=== PATIENT | male | born 1990 | race Caucasian/White ===

== ENCOUNTER → 2017-12-07 | Outpatient (CLI) | payer BC ==
[~2017-12-07] MED LIST: AMIT25 PO; Bactrim Ds Tab1 EACH PO; CARB100ER PO; CARBAMAZEPINE400 M1 PO; CYCL10 PO; GABA600 PO; PRED20 PO
[2017-12-10 00:12] LABS: CHLAMYDIA TRACHOMATIS, NAA Negative (Negative); NEISSERIA GONORRHOEAE, NAA Positive (Negative)
== END | disposition home or self-care (01) ==
LOC: LAB 12:00 → LAB SHORT 12:00
PROVIDERS: Emergency Medicine
DX: R36.0 Urethral discharge without blood (principal)
CPT/HCPCS: 87491; 87591

== ENCOUNTER → 2018-01-29 | Outpatient (CLI) | payer BC | LOC: LAB SHORT 12:24 → LAB 12:24 | PROVIDERS: Nurse Practitioner | DX: N50.9 Disorder of male genital organs, unspecified (principal) | CPT/HCPCS: 86695; 86696 ==

== ENCOUNTER → 2018-05-27 | Outpatient (CLI) | payer BC, SELFPAY ==
[2018-05-27 14:30] LABS: Creatinine Urine 60.6 mg/dL (27.00-270.00); Protein, Urine Quantitative 63.7 mg/dL (0.0-11.9)
== END | disposition home or self-care (01) ==
LOC: LAB 12:00 → LAB SHORT 12:00
PROVIDERS: Internal Medicine Nephrology
DX: N18.1 Chronic kidney disease, stage 1 (principal); D63.1 Anemia in chronic kidney disease; R31.9 Hematuria, unspecified
CPT/HCPCS: 81050; 82043; 82570; 84156

== ENCOUNTER 2019-03-25 16:57 | Emergency (ER) | payer BC, SELFPAY ==
[~2019-03-25] VITALS: Ht 170.2 cm; Wt 63.5 kg
[2019-03-25] MEDS ORDERED: LISINOPRIL PO (17:09)
[2019-03-25 18:38] LABS: BASOPHILS ABSOLUTE AUTO 0.04 K/mm3 (0.00-0.23); BASOPHILS PERCENT AUTO 1 % (0-2); EOSINOPHILS ABSOLUTE AUTO 0.16 K/mm3 (0.00-0.68); EOSINOPHILS PERCENT AUTO 2 % (0-6); Hematocrit 44.7 % (37.0-53.0); IMMATURE GRAN ABSOLUTE AUTO 0.02 K/mm3 (0.00-0.10); IMMATURE GRAN PERCENT AUTO 0 % (0-1); LYMPHOCYTES ABSOLUTE AUTO 2.26 K/mm3 (0.84-5.20); LYMPHOCYTES PERCENT AUTO 28 % (21-46); MONOCYTES ABSOLUTE AUTO 0.44 K/mm3 (0.16-1.47); MONOCYTES PERCENT AUTO 5 % (4-13); Mean Corpuscular HGB 30.4 pg (26.0-34.0); Mean Corpuscular HGB Conc 33.6 g/dL (31.5-36.5); Mean Corpuscular Volume 91 fL (80-100); NEUTROPHILS ABSOLUTE AUTO 5.16 K/mm3 (1.96-9.15); NEUTROPHILS PERCENT AUTO 64 % (41-73); Platelet Count 231 K/mm3 (150-400); RDW Coefficient Variation 12.6 % (11.7-14.2); RDW Standard Deviation 41.1 fL (35.1-46.3); Red Blood Cell Count 4.93 M/mm3 (4.30-5.90); White Blood Cell Count 8.08 K/mm3 (4.00-11.30)
[2019-03-25 18:41] LABS: Alanine Aminotransfer (ALT/SGP 41 U/L (12-78); Albumin, Blood 3.8 g/dL (3.4-5.0); Albumin/Globulin Ratio 1.1 (0.8-1.8); Alk Phos 99 U/L (50-136); Anion Gap 4 mmol/L (6-16); Aspartate Aminotrans (AST/SGOT 20 U/L (12-37); Bilirubin, Total 0.2 mg/dL (0.1-1.0); Blood Urea Nitrogen 17 mg/dL (8-24); Bun/Creatinine Ratio 15.6 (12.0-20.0); CO2, Blood 31 mmol/L (21-32); Calcium, Blood 8.7 mg/dL (8.5-10.1); Chloride, Blood 105 mmol/L (98-108); Creatinine, Blood 1.09 mg/dL (0.60-1.20); Globulin, Blood 3.6 g/dL (2.2-4.0); Glomerular Filtration Rate >60 (60-); Glucose, Blood 91 mg/dL (70-99); Potassium, Blood 3.8 mmol/L (3.5-5.5); Sodium, Blood 140 mmol/L (136-145); Total Protein, Blood 7.4 g/dL (6.4-8.2)
== END 2019-03-25 19:10 | disposition home or self-care (01) ==
LOC: ER 16:57
PROVIDERS: Emergency Medicine
DX: I10 Essential (primary) hypertension (principal); N02.8 Recurrent and persistent hematuria with other morphologic changes; F17.290 Nicotine dependence, other tobacco product, uncomplicated; Z79.899 Other long term (current) drug therapy
CPT/HCPCS: 36415; 80053; 85025; 93005; 93010; 99283-25

== ENCOUNTER 2021-02-26 12:52 | Emergency (ER) | payer OTHER ==
[~2021-02-26] VITALS: Ht 170.2 cm; Wt 63.5 kg
[~2021-02-26 12:52] MED LIST changes: +LISINOPRIL PO
[2021-02-26] MEDS ORDERED: LOSA50 PO (13:28)
== END 2021-02-26 13:35 | disposition home or self-care (01) ==
LOC: ER 12:52
DX: K64.8 Other hemorrhoids (principal); K64.4 Residual hemorrhoidal skin tags; Z87.891 Personal history of nicotine dependence
CPT/HCPCS: 99282

== ENCOUNTER 2021-11-24 10:48 | Emergency (ER) | payer OTHER ==
[~2021-11-24] VITALS: Ht 170.2 cm; Wt 65.8 kg
[~2021-11-24 10:48] MED LIST changes: +LOSA50 PO
== END 2021-11-24 11:15 | disposition home or self-care (01) ==
LOC: ER 10:48
DX: S90.412A Abrasion, left great toe, initial encounter (principal); X58.XXXA Exposure to other specified factors, initial encounter; Z79.899 Other long term (current) drug therapy
CPT/HCPCS: 99282

== ENCOUNTER 2024-03-07 12:05 | Emergency (ER) | payer OTHER ==
[~2024-03-07] VITALS: Ht 170.2 cm; Wt 65.8 kg
[2024-03-07 12:16] VITALS: BP 143/103
[2024-03-07] MEDS ORDERED: GABAPENTIN600 MG PO (14:59)
[2024-03-07] MEDS ORDERED: CARVEDILOL12.5 MG PO (14:59)
== END 2024-03-07 15:02 ==
LOC: ER 12:05
DX: S46.912A Strain of unspecified muscle, fascia and tendon at shoulder and upper arm level, left arm, initial encounter (principal); S76.912A Strain of unspecified muscles, fascia and tendons at thigh level, left thigh, initial encounter; M79.672 Pain in left foot; W55.12XA Struck by horse, initial encounter
CPT/HCPCS: 73030; 73630; 99283-25